=== PATIENT | male | born 1975 | race Two or more races ===

== ENCOUNTER → 2016-06-20 | Outpatient (CLI) | payer MEDICARE, OTHER ==
--- NOTE | 2016-06-20 13:02 | RAD ---
Three-view lumbar spine series History: Chronic low back pain with stiffness and limited mobility. Findings: The transverse processes are intact. No compression fracture or discitis or osteolytic process or anterolisthesis is seen. There is mild degenerative endplate spurring throughout the lumbar spine. Mild disc base narrowing is seen at T12-L1 and L1-L2 and L3-L4. IMPRESSION: Mild degenerative lumbar spondylosis.
== END | disposition home or self-care (01) ==
LOC: RAD 10:42
PROVIDERS: ATTEND Internal Medicine
DX: M47.896 Other spondylosis, lumbar region (principal); G89.29 Other chronic pain
CPT/HCPCS: 72100